=== PATIENT | female | born 1995 | race Caucasian/White ===

== ENCOUNTER → 2016-10-02 | Outpatient (CLI) | payer SELFPAY ==
--- NOTE | 2016-10-02 12:46 | KCIC ---
PROCEDURE PA and lateral chest radiographs 10/02/2016 HISTORY Shortness of breath. FINDINGS PA and lateral digital radiographs of the chest were obtained. No previous studies are available for comparison. The cardiac and mediastinal silhouettes are within normal limits in size and configuration. No acute pulmonary infiltrate is seen. No pleural effusion or pneumothorax is noted. Mild degenerative changes are seen involving the thoracic spine. IMPRESSION No radiographic evidence of active cardiopulmonary disease. Electronically signed by: Angel Hanson MD (October 02, 2016 12:45:31)
== END | disposition home or self-care (01) ==
LOC: KCIC 10:44
PROVIDERS: ATTEND Internal Medicine Pulmonary Disease
DX: R06.02 Shortness of breath (principal)
CPT/HCPCS: 71020